=== PATIENT | male | born 1975 | race Caucasian/White ===

== ENCOUNTER 2019-01-30 20:27 | Emergency (ER) | payer OTHER ==
--- NOTE | 2019-01-30 21:49 | EDPHYS ---
Physician Documentation [facility] Name: Wilbert Hanna Age: 43 yrs Sex: Male : 1975 Arrival Date: 01/30/2019 Time: 20:29 Bed 28 Private MD: ED Physician Scott Bundy Historical: - Allergies: 01/30 20:52 No Known Allergies; ea - Home Meds: 20:52 None [Active]; ea - PMHx: 20:52 None; ea - PSHx: 20:52 None; ea - Immunization history:: Adult Immunizations up to date. - Social history:: Smoking status: Patient uses tobacco products. - Ebola Screening: : No symptoms or risks identified at this time. Vital Signs: 20:50 BP 151 / 106; Pulse 96; Resp 18; Temp 98; Pulse Ox 99% ; Weight 90.72 kg; Height 6 ft. ea 0 in. (182.88 cm); 20:50 Body Mass Index 27.12 (90.72 kg, 182.88 cm) ea MDM: 20:44 Patient medically screened. pm1 21:47 Data reviewed: vital signs. Data interpreted: Pulse oximetry: on room air is 99 %. pm1 Interpretation: normal. Counseling: I had a detailed discussion with the patient and/or guardian regarding: the historical points, exam findings, and any diagnostic results supporting the discharge/admit diagnosis, the need for outpatient follow up, an ENT specialist, to return to the emergency department if symptoms worsen or persist or if there are any questions or concerns that arise at home. Administered Medications: 20:56 Drug: Ricardo-Synephrine [place] 0.5 % 2 sprays Route: Intranasal; Site: right nare; mg2 21:53 Follow up: Response: No adverse reaction; Marked relief of symptoms mg2 Disposition: 01/30/19 21:48 Discharged to Home. Impression: Epistaxis. - Condition is Stable. - Discharge Instructions: Nosebleed, Adult. - Medication Reconciliation Form, Thank You Letter, Antibiotic Education, Prescription Opioid Use form. - Follow up: Emergency Department; When: As needed; Reason: Worsening of condition. Follow up: Malena Deluca MD; When: 2 - 3 days; Reason: Recheck today's complaints, Continuance of care, Re-evaluation by your physician. - Problem is new. - Symptoms have improved. Signatures: Manuel Diaz NP [employer]YCH[employer] pm1 Samantha Nina, RN RN ea Garland Stratton RN RN mg2 Corrections: (The following items were deleted from the chart) 21:53 21:48 01/30/2019 21:48 Discharged to Home. Impression: Epistaxis. Condition is Stable. mg2 Forms are Medication Reconciliation Form, Thank You Letter, Antibiotic Education, Prescription Opioid Use. Follow up: Emergency Department; When: As needed; Reason: Worsening of condition. Follow up: Malena Deluca; When: 2 - 3 days; Reason: Recheck today's complaints, Continuance of care, Re-evaluation by your physician. Problem is new. Symptoms have improved. pm1
--- NOTE | 2019-01-30 21:49 | ER ---
Nurse's Notes [facility] Name: Wilbert Hanna Age: 43 yrs Sex: Male : 1975 Arrival Date: 01/30/2019 Time: 20:29 Bed 28 Private MD: Diagnosis: Epistaxis Presentation: 01/30 20:48 Presenting complaint: Patient states: Patient reports his nose started bleeding ea yesterday, at 4 AM it became worse and has been bleeding nonstop. Pt states he has been coughing up clots and gushing out blood out of his right nostril. Transition of care: patient was not received from another setting of care. Onset of symptoms was January 30, 2019. Risk Assessment: Do you want to hurt yourself or someone else? Patient reports no desire to harm self or others. Initial Sepsis Screen: Does the patient meet any 2 criteria? No. Patient's initial sepsis screen is negative. Does the patient have a suspected source of infection? No. Patient's initial sepsis screen is negative. Care prior to arrival: None. 20:48 Method Of Arrival: Ambulatory ea 20:48 Acuity: ANDRE 4 ea Triage Assessment: 20:52 General: Appears in no apparent distress. Behavior is calm, cooperative. Pain: Denies ea pain. EENT: Nares Dried blood noted to right nare. Neuro: Level of Consciousness is awake, alert, obeys commands, Oriented to person, place, time, situation. Respiratory: Airway is patent Respiratory effort is even, unlabored, Respiratory pattern is regular, symmetrical. Historical: - Allergies: 20:52 No Known Allergies; ea - Home Meds: 20:52 None [Active]; ea - PMHx: 20:52 None; ea - PSHx: 20:52 None; ea - Immunization history:: Adult Immunizations up to date. - Social history:: Smoking status: Patient uses tobacco products. - Ebola Screening: : No symptoms or risks identified at this time. Screenin:51 Abuse screen: Denies threats or abuse. Nutritional screening: No deficits noted. ea Tuberculosis screening: No symptoms or risk factors identified. Fall Risk None identified. Assessment: 20:57 General: Appears in no apparent distress. comfortable, Behavior is calm, cooperative. mg2 Pain: Denies pain. Neuro: Level of Consciousness is awake, alert, obeys commands, Oriented to person, place, time, situation. Cardiovascular: Capillary refill < 3 seconds Patient's skin is warm and dry. Respiratory: Airway is patent Respiratory effort is even, unlabored, Respiratory pattern is regular, symmetrical. GI: No signs and/or symptoms were reported involving the gastrointestinal system. : No signs and/or symptoms were reported regarding the genitourinary system. EENT: Nares on right mild bleeding noted. Derm: Skin is intact, is healthy with good turgor, Skin is pink, warm \T\ dry. normal. Musculoskeletal: Circulation, motion, and sensation intact. Capillary refill < 3 seconds. 21:38 Reassessment: clamp removed because patient complained of pain in the nose. no bleeding mg2 noted. 21:48 Reassessment: patient and the girlfriend are in a hurry to be reassessed by the mg2 provider. no bleeding noted by me. patient walked out of ER and provider saw the patient on their way out. patient was stable, no active bleeding noted. Vital Signs: 20:50 BP 151 / 106; Pulse 96; Resp 18; Temp 98; Pulse Ox 99% ; Weight 90.72 kg; Height 6 ft. ea 0 in. (182.88 cm); 20:50 Body Mass Index 27.12 (90.72 kg, 182.88 cm) ea ED Course: 20:29 Patient arrived in ED. as 20:41 Manuel Diaz NP is PHCP. pm1 20:42 Scott Bundy MD is Attending Physician. pm1 20:48 Arm band placed on right wrist. Patient placed in an exam room, on a stretcher, on ea pulse oximetry. 20:49 Garland Stratton, CHELSY is Primary Nurse. mg2 20:50 Triage completed. ea 21:00 Assist provider with nosebleed control using nasal clamp, Bleeding from right nares. mg2 Set up for procedure. Performed by Manuel Diaz NP Patient tolerated well. 21:01 Patient has correct armband on for positive identification. mg2 21:48 Malena Deluca MD is Referral Physician. pm1 21:51 Patient did not have IV access during this emergency room visit. mg2 Administered Medications: 20:56 Drug: Ricardo-Synephrine [place] 0.5 % 2 sprays Route: Intranasal; Site: right nare; mg2 21:53 Follow up: Response: No adverse reaction; Marked relief of symptoms mg2 Outcome: 21:48 Discharge ordered by MD. pm1 21:51 Discharged to home ambulatory, with family. mg2 21:51 Condition: stable 21:52 Discharge instructions given to patient, family, Instructed on discharge instructions, mg2 Demonstrated understanding of instructions, by provider. 21:53 Patient left the ED. mg2 Signatures: Keke Palma Patrick, NP [employer] pm1 Samantha Nina RN RN ea Gardose, Michele, RN RN mg2
== END 2019-01-30 21:53 | disposition home or self-care (01) ==
LOC: ER 20:27
DX: R04.0 Epistaxis (principal); Z72.0 Tobacco use
CPT/HCPCS: 99283